=== PATIENT | male | born 1970 | race Two or more races ===

== ENCOUNTER 2022-08-20 21:14 | Emergency (ER) | payer MEDICAID, MEDICARE ==
[~2022-08-20] VITALS: Ht 167.6 cm; Wt 68.2 kg
[2022-08-21] MEDS ORDERED: ALBUTEROL SULF 2.5 MG/0.5ML(0.5%) NEB SOLN NEB ONE (01:15)
[2022-08-21] MEDS ORDERED: DexAMETHasone SOD PHOS 10MG/1ML VIAL INJ IM ONE (01:15)
[2022-08-21] MEDS ORDERED: IPRATROPIUM BROM 0.5 MG/2.5ML INH SOL NEB ONE (01:15)
[2022-08-21 01:16] VITALS: BP 144/86
[2022-08-21] MEDS ORDERED: PRED20TA2 PO (02:00)
[2022-08-21] MEDS ORDERED: ALBUAER3 IN (02:00)
== END 2022-08-21 02:39 | disposition home or self-care (01) ==
LOC: ER 21:14
DX: J06.9 Acute upper respiratory infection, unspecified (principal); F17.210 Nicotine dependence, cigarettes, uncomplicated; R07.89 Other chest pain; Z20.822 Contact with and (suspected) exposure to COVID-19
CPT/HCPCS: 36415; 71045; 87426; 87804; 96372; 99284; J1100; J7644

== ENCOUNTER 2022-10-06 07:05 | Emergency (ER) | payer MEDICAID ==
[~2022-10-06] VITALS: Ht 167.6 cm; Wt 69.9 kg
[~2022-10-06 07:05] MED LIST: ALBUAER3 IN; PRED20TA2 PO
[2022-10-06 07:28] VITALS: BP 152/70
[2022-10-06] MEDS ORDERED: IBUPROFEN 600 MG TAB PO ONE (08:30)
[2022-10-06] MEDS ORDERED: ACET1CAP14 PO (09:15)
== END 2022-10-06 09:24 | disposition home or self-care (01) ==
LOC: ER 07:05
DX: S83.92XA Sprain of unspecified site of left knee, initial encounter (principal); S83.91XA Sprain of unspecified site of right knee, initial encounter; F41.9 Anxiety disorder, unspecified; F17.210 Nicotine dependence, cigarettes, uncomplicated; V00.131A Fall from skateboard, initial encounter; Y93.89 Activity, other specified; Y92.89 Other specified places as the place of occurrence of the external cause; Y99.8 Other external cause status
CPT/HCPCS: 73562